=== PATIENT | male | born 1980 | race Caucasian/White ===

== ENCOUNTER 2017-06-03 04:42 | Emergency (ER) | payer MEDICAID ==
[~2017-06-03] VITALS: Ht 182.9 cm; Wt 88.2 kg
[2017-06-03] MEDS ORDERED: KETOROLAC TROMETHAMINE 30 MG/ML VIAL IM ONE (05:30)
[2017-06-03] MEDS ORDERED: DEXAMETHASONE SOD PHOS 4 MG/ML 5 ML VIAL IM ONE (05:30)
[2017-06-03 05:43] VITALS: BP 139/90
== END 2017-06-03 05:45 | disposition home or self-care (01) ==
LOC: EDBD 04:44 → EMS 04:44
DX: J02.8 Acute pharyngitis due to other specified organisms (principal); B97.89 Other viral agents as the cause of diseases classified elsewhere; F17.210 Nicotine dependence, cigarettes, uncomplicated
CPT/HCPCS: 96372; 99284; J1100; J1885

== ENCOUNTER 2017-06-04 15:31 | Emergency (ER) | payer MEDICAID ==
[~2017-06-04] VITALS: Ht 185.4 cm; Wt 88.6 kg
[2017-06-04] MEDS ORDERED: ONDANSETRON HCL 4 MG/2 ML VIAL IVP ONE ×2 (18:00→22:15)
[2017-06-04] MEDS ORDERED: MetroNIDAZOLE 500 MG/NACL 100 ML IV ONE (18:00)
[2017-06-04] MEDS ORDERED: DEXAMETHASONE SOD PHOS 4 MG/ML 5 ML VIAL IVP ONE (18:00)
[2017-06-04] MEDS ORDERED: MORPHINE SULFATE 4 MG/ML SYRINGE IVP ONE (18:00)
[2017-06-04] MEDS ORDERED: SODIUM CHLORIDE 0.9% 1,000 ML IV ONE ×2 (18:00→22:15)
[2017-06-04] MEDS ORDERED: CeFAZolin 1 GM/DEXTROSE 50 ML IV ONE (18:00)
[2017-06-04 18:19] LABS: BASOPHILS % (AUTO) 0.9 % (0.0-2.0); EOSINOPHILS % (AUTO) 0.5 % (1.0-6.0); HEMATOCRIT 43.9 % (41-53); HEMOGLOBIN 14.9 g/dL (13.5-17.5); LYMPHOCYTES # (AUTO) 2.7 K/uL (1.0-4.8); LYMPHOCYTES % (AUTO) 21.6 % (22.0-44.0); MEAN CORPUSCULAR HEMOGLOBIN 30.4 pg (26.0-34.0); MEAN CORPUSCULAR VOLUME 90 fL (80-100); MONOCYTES # (AUTO) 0.7 K/uL (0.1-1.0); MONOCYTES % (AUTO) 5.8 % (2.0-9.0); NEUTROPHILS # (AUTO) 8.9 K/uL (1.8-7.7); NEUTROPHILS % (AUTO) 71.2 % (40.0-70.0); PLATELET COUNT (AUTO) 226 K/uL (150-450); RED BLOOD CELL COUNT(AUTO) 4.91 MIL/uL (4.50-5.90); RED CELL DISTRIBUTION WIDTH 13.1 % (11.5-14.5)
[2017-06-04] MEDS ORDERED: SODIUM CHLORIDE 0.9% 100 ML ONE (18:22)
[2017-06-04] MEDS ORDERED: IOVERSOL 320 MG/ML 100 ML VIAL ONE (18:22)
[2017-06-04 18:34] LABS: ANION GAP 9 mmol/L (8-16); CALCIUM, TOTAL 9.1 mg/dL (8.8-10.5); CARBON DIOXIDE 27 mmol/L (22-29); CHLORIDE 104 mmol/L (98-107); CREATININE 0.72 mg/dL (0.60-1.30); GLOMERULAR FILTR. RATE CALC > 60 mL/min (>60); GLUCOSE,RANDOM 98 mg/dL (70-110); POTASSIUM 3.5 mmol/L (3.5-5.1); SODIUM SERUM 140 mmol/L (136-145); UREA NITROGEN, BLOOD 14 mg/dL (7-18)
[2017-06-04 18:40] LABS: ALANINE AMINOTRANSFERASE 17 U/L (12-78); ALBUMIN 3.6 g/dL (3.4-5.0); ALKALINE PHOSPHATASE 93 U/L (46-116); ASPARTATE AMINOTRANSFERASE 11 U/L (15-37); BILIRUBIN,TOTAL 0.7 mg/dL (0.1-1.0)
[2017-06-04] MEDS ORDERED: CeFAZolin 1 GM/DEXTROSE 10 ML IV SCH (20:15)
[2017-06-04] MEDS ORDERED: HYDROmorphone 2 MG/ML SYRINGE IVP ONE (22:15)
[2017-06-04 23:16] VITALS: BP 144/82
== END 2017-06-04 23:41 | disposition short-term general hospital (02) ==
LOC: EMS 15:34
DX: J36 Peritonsillar abscess (principal); J02.9 Acute pharyngitis, unspecified; F17.210 Nicotine dependence, cigarettes, uncomplicated
CPT/HCPCS: 36415; 70491; 80053; 85025; 87430; 96361; 96365; 96375; 96376; 99285; 99406; J0690; J1100; J1170; J2270; J2405; J3490; J7030; J7050; Q9967

== ENCOUNTER 2020-02-14 09:48 | Emergency (ER) | payer MEDICAID ==
[~2020-02-14] VITALS: Ht 185.4 cm; Wt 84.0 kg
[2020-02-14] MEDS ORDERED: ACETAMINOPHEN 500 MG TABLET PO ONE (11:00)
[2020-02-14 12:50] VITALS: BP 141/74
== END 2020-02-14 13:14 | disposition home or self-care (01) ==
LOC: EMS 09:49
DX: S02.2XXA Fracture of nasal bones, initial encounter for closed fracture (principal); F17.210 Nicotine dependence, cigarettes, uncomplicated; Y04.2XXA Assault by strike against or bumped into by another person, initial encounter; Y93.89 Activity, other specified; Y92.89 Other specified places as the place of occurrence of the external cause; Y99.8 Other external cause status
CPT/HCPCS: 70450; 70486; 72125

== ENCOUNTER 2020-12-26 00:29 | Emergency (ER) | payer MEDICAID ==
[~2020-12-26] VITALS: Ht 185.4 cm; Wt 86.4 kg
[2020-12-26 02:50] VITALS: BP 124/72
[2020-12-26] MEDS ORDERED: MECLIZINE HCL 25 MG TABLET PO ONE (03:15)
[2020-12-26 03:22] LABS: COVID AG,FIA SOURCE NASOPHARYNGEAL
[2020-12-26 03:42] LABS: AMPHET/METH SCREEN,URINE POSITIVE (NEGATIVE); BARBITURATE SCREEN, URINE NEGATIVE (NEGATIVE); BENZODIAZEPINES SCREEN,URINE NEGATIVE (NEGATIVE); CANNABINOID SCREEN,URINE NEGATIVE (NEGATIVE); COCAINE SCREEN,URINE NEGATIVE (NEGATIVE); METHADONE SCREEN, URINE NEGATIVE (NEGATIVE); OPIATE SCREEN,URINE NEGATIVE (NEGATIVE)
[2020-12-26 03:43] LABS: PHENCYCLIDINE SCREEN,URINE NEGATIVE (NEGATIVE)
== END 2020-12-26 04:48 | disposition home or self-care (01) ==
LOC: EMS 00:30
DX: F15.10 Other stimulant abuse, uncomplicated (principal); R42 Dizziness and giddiness; R50.9 Fever, unspecified; F17.210 Nicotine dependence, cigarettes, uncomplicated; Z20.822 Contact with and (suspected) exposure to COVID-19
CPT/HCPCS: 99283

== ENCOUNTER 2021-04-29 18:50 | Emergency (ER) | payer MEDICAID ==
[~2021-04-29] VITALS: Ht 180.3 cm; Wt 90.9 kg
[2021-04-29] MEDS ORDERED: MECLIZINE HCL 25 MG TABLET PO ONE (20:45)
[2021-04-29 20:58] LABS: BASOPHILS % (AUTO) 0.3 % (0.0-2.0); EOSINOPHILS % (AUTO) 1.1 % (1.0-6.0); HEMATOCRIT 41.8 % (41-53); HEMOGLOBIN 14.5 g/dL (13.5-17.5); LYMPHOCYTES # (AUTO) 1.1 K/uL (1.0-4.8); LYMPHOCYTES % (AUTO) 12.4 % (22.0-44.0); MEAN CORPUSCULAR HEMOGLOBIN 30.8 pg (26.0-34.0); MEAN CORPUSCULAR HGB CONC 34.6 G/dL (31.0-37.0); MEAN CORPUSCULAR VOLUME 89 fL (80-100); MONOCYTES # (AUTO) 0.4 K/uL (0.1-1.0); MONOCYTES % (AUTO) 4.2 % (2.0-9.0); NEUTROPHILS # (AUTO) 7.5 K/uL (1.8-7.7); PLATELET COUNT (AUTO) 176 K/uL (150-450); RED BLOOD CELL COUNT(AUTO) 4.69 MIL/uL (4.50-5.90); RED CELL DISTRIBUTION WIDTH 13.2 % (11.5-14.5)
[2021-04-29 21:20] LABS: ANION GAP 6 mmol/L (8-16); CARBON DIOXIDE 28 mmol/L (22-29); CHLORIDE 104 mmol/L (98-107); CREATININE 0.74 mg/dL (0.60-1.30); GLOMERULAR FILTR. RATE CALC > 60 mL/min (>60); GLUCOSE,RANDOM 86 mg/dL (70-110); POTASSIUM 4.3 mmol/L (3.5-5.1); SODIUM SERUM 138 mmol/L (136-145); UREA NITROGEN, BLOOD 20 mg/dL (7-18)
[2021-04-29 21:25] LABS: COVID AG,FIA SOURCE NASAL SWAB
[2021-04-29 21:25] LABS: ALANINE AMINOTRANSFERASE 19 U/L (12-78); ALBUMIN 3.7 g/dL (3.4-5.0); ALKALINE PHOSPHATASE 86 U/L (46-116); ASPARTATE AMINOTRANSFERASE 6 U/L (15-37); BILIRUBIN,TOTAL 0.5 mg/dL (0.1-1.0); TOTAL PROTEIN, SERUM 7.2 g/dL (6.4-8.2)
[2021-04-30 00:17] VITALS: BP 125/81
== END 2021-04-30 00:24 | disposition home or self-care (01) ==
LOC: EMS 18:52
DX: F15.90 Other stimulant use, unspecified, uncomplicated (principal); F17.210 Nicotine dependence, cigarettes, uncomplicated; R42 Dizziness and giddiness; R20.0 Anesthesia of skin; Z20.822 Contact with and (suspected) exposure to COVID-19
CPT/HCPCS: 70450; 71045; 80053; 84484; 85025; 87426; 93005; 99285; G0480; 36415-L1; 36415-TC

== ENCOUNTER 2021-05-12 15:33 | Emergency (ER) | payer MEDICAID ==
[~2021-05-12] VITALS: Ht 185.4 cm; Wt 86.4 kg
[2021-05-12 16:41] VITALS: BP 129/80
== END 2021-05-12 18:22 | disposition left against medical advice (07) ==
LOC: EMS 15:45
DX: Z20.822 Contact with and (suspected) exposure to COVID-19 (principal); Z53.21 Procedure and treatment not carried out due to patient leaving prior to being seen by health care provider